=== PATIENT | female | born 1995 | race African-American/Black ===

== ENCOUNTER 2018-04-26 16:36 | Inpatient (IN) | payer OTHER ==
[~2018-04-26] VITALS: Ht 160 cm; Wt 72.6 kg
[2018-04-26 17:22] LABS: MEAN CORPUSCULAR HEMOGLOBIN 24.2 pg (27.0-33.0); MEAN CORPUSCULAR HGB CONC 30.7 g/dl (32.0-36.5); MEAN CORPUSCULAR VOLUME 78.9 fl (80.0-96.0); PLATELET COUNT, AUTOMATED 255 10^3/uL (150-450); WHITE BLOOD COUNT 4.8 10^3/uL (4.0-10.0)
[2018-04-26 17:25] LABS: HEMOGLOBIN 4.6 g/dl (12.0-15.5)
[2018-04-26] MEDS ORDERED: NS 1,000 ML IV ONE (17:30)
[2018-04-26 17:40] LABS: HCG, SERUM QUALITATIVE NEGATIVE (NEGATIVE)
[2018-04-26 17:46] LABS: BLOOD UREA NITROGEN 9 MG/DL (7-18); CALCIUM LEVEL 8.7 MG/DL (8.5-10.1); CARBON DIOXIDE LEVEL 26 MEQ/L (21-32); CHLORIDE LEVEL 108 MEQ/L (98-107); CREATININE FOR GFR 0.74 MG/DL (0.55-1.30); GLOMERULAR FILTRATION RATE > 60.0 (>60); GLUCOSE, FASTING 88 MG/DL (70-100); POTASSIUM SERUM 3.8 MEQ/L (3.5-5.1); SODIUM LEVEL 138 MEQ/L (136-145)
[2018-04-26] MEDS ORDERED: ONDANSETRON 4MG/2ML VIAL (J2405) IV PRN (18:00)
[2018-04-26] MEDS ORDERED: ACETAMINOPHEN 500 MG TAB PO PRN (18:00)
[2018-04-26] MEDS ORDERED: CONJUGATED ESTROGENS 25 MG VIAL (J1410) IV PRN (18:00)
[2018-04-26] MEDS ORDERED: diphenhydrAMINE INJ 50MG/ML VIAL (J1200) IV ONE (18:15)
[2018-04-26] MEDS ORDERED: METOCLOPRAMIDE INJ 10MG/2ML VIAL (J2765) IV ONE (18:15)
--- NOTE | 2018-04-26 18:40 | IPNPDOC ---
Text Note Date of Service The patient was seen on 04/26/18. NOTE ER consult CC: Menorrhagia, dizziness Shelley is a 23 yo G0 not currently using contraception who presented to the ER after being instructed to do so because of heavy vaginal bleeding that has been persistent for greater than a week that has resulted in her feeling weak and dizzy. She reports she has had persistent bleeding for greater than a week that will just not stop. She had a pelvic US today at [place] which revealed a mildly thickened endometrial stripe. She has never experienced something like this before. She had a pelvic US today at [place] which revealed a mildly thickened endometrial stripe. Right now she reports feeling dizzy and light headed. She also feels weak. She denies any SOB or chest pain. She denies bleeding from any other location. ER course - Lab work, IV access OBHX: G0 GYNHX: No STD or abnormal pap history. Menstrual cycles erratic at times. PMHX: Denies PSHX: Denies All: None Meds: None Social: Denies tobacco use, rec drug use, or etoh use FamHx: Denies any family history of VTE or cardiac problems Exam (Chaperoned by ER nurse): Vitals - BP 130/60, HR 120s, 98% O2 on RA, afebrile General - AAOX3, laying in bed, NAD. Pale appearing CV - Tachycardic rate, regular rhythm Abdomen - Soft, nondistended. No tenderness to palpation Pelvic - Normal external female genitalia. Speculum placed into the vagina and the cervix was visualized. Scant oozing blood noted from the cervix. No lesions or masses. Speculum removed. Extremities - No edema Labs: H/H - 4.6/15.0 Rads: TVUS at [place] revealed numerous follicular cysts on both ovaries. Mildly thickened EMS at 1.4cm. No gross lesions or abnormalities. A/P: 23 yo G0 with acute, persistent menorrhagia resulting symptomatic, severe anemia. -Bleeding minimal at this time but persistent. She is AAOX3, but her low H/H and elevated pulse are concerning. Will admit to the floor for transfusion of 4U PRBCs and administration of IV estrogen. She has been typed and crossed. She has no contraindications for estrogen therapy (i.e., doesn't smoke, no personal or family history of VTE, breast Ca, or uterine Ca). -SCDs -Zofran IV for nausea -CBC following transfusion completion -Q4H vital signs -Close monitoring with vaginal pad counts. May need to consider D+C if bleeding is refractory to medical therapy. - All patient questions answered. Rosalio Parks DO VS,Juan J, I+O VS, Juan J, I+O Laboratory Tests 04/26/18 16:59 Red Blood Count 1.90 L, Mean Corpuscular Volume 78.9 L, Mean Corpuscular Hemoglobin 24.2 L, Mean Corpuscular Hemoglobin Concent 30.7 L, Red Cell Distribution Width 16.0 H, Calcium Level 8.7 Vital Signs Date Time Temp Pulse Resp B/P (MAP) Pulse Ox O2 Delivery O2 Flow Rate FiO2 04/26/18 17:00 04/26/18 16:37 98.9 124 16 98 Room Air ROSALIO PARKS DO Apr 26, 2018 18:40
[2018-04-26 21:00] VITALS: BP 118/56
[2018-04-26] MEDS: DOCUSATE SODIUM 100 MG CAP PO SCH (23:19)
[2018-04-26] MEDS: CONJUGATED ESTROGENS 25 MG VIAL (J1410) IV SCH (23:20)
[2018-04-27] VITALS: BP 119/59
[2018-04-27 04:00] VITALS: BP 118/65
[2018-04-27] MEDS: CONJUGATED ESTROGENS 25 MG VIAL (J1410) IV SCH ×2 (06:59→14:44)
[2018-04-27 08:30] VITALS: BP 135/67
[2018-04-27 08:47] LABS: BASO % 0.5 % (0.0-1.0); EOS % 0.5 % (0.0-3.0); HEMATOCRIT 29.3 % (36.0-47.0); LYMPH # 1.9 10^3/uL (1.5-6.5); LYMPH % 29.2 % (24.0-44.0); MEAN CORPUSCULAR HEMOGLOBIN 27.5 pg (27.0-33.0); MEAN CORPUSCULAR HGB CONC 32.8 g/dl (32.0-36.5); MONO # 0.6 10^3/uL (0.0-0.8); MONO % 8.7 % (0.0-5.0); NEUTROPHILS % 60.9 % (36.0-66.0); PLATELET COUNT, AUTOMATED 197 10^3/uL (150-450); RED BLOOD COUNT 3.49 10^6/uL (4.00-5.40); WHITE BLOOD COUNT 6.5 10^3/uL (4.0-10.0)
--- NOTE | 2018-04-27 08:48 | IPNPDOC ---
Text Note Date of Service The patient was seen on 04/27/18. NOTE Patient seen this AM. Ms. Lopez reports feeling significantly improved this morning. She just recently completed her last unit of blood. She has had very minimal vaginal s potting since admission and starting the IV estrogen. She is ambulating, voiding, and tolerating a regular diet. Vitals - VSS, afebrile, normotensive, non tachycardic General - AAOX3, sitting up in bed, NAD CV - RRR Abdomen - Soft, nondistended, no tenderness to palpation Extremities - No edema Labs: pending post op CBC Ms. Lopez is doing ell. Bleeding has halted after IV estrogen. She feels much improved after her transfusion. If CBC looks good today likely discharge home today. Would recommend starting OCPs. all patient questions answered. DO Charly VS,Juan J, I+O VS, Juan J, I+O Laboratory Tests 04/26/18 16:59 Red Blood Count 1.90 L, Mean Corpuscular Volume 78.9 L, Mean Corpuscular Hemoglobin 24.2 L, Mean Corpuscular Hemoglobin Concent 30.7 L, Red Cell Distribution Width 16.0 H, Calcium Level 8.7 Vital Signs Date Time Temp Pulse Resp B/P (MAP) Pulse Ox O2 Delivery O2 Flow Rate FiO2 04/27/18 04:00 98.0 88 18 118/65 (82) 100 2.0 04/26/18 16:37 Room Air I&O- Last 24 Hours up to 6 AM 04/27/18 06:00 Intake Total 2995 ml Output Total 300 ml Balance 2695 ml ROSALIO CLINOTN DO Apr 27, 2018 08:48
[2018-04-27 09:25] LABS: HEMOGLOBIN 9.6 g/dl (12.0-15.5)
[2018-04-27] MEDS: DOCUSATE SODIUM 100 MG CAP PO SCH (09:41)
[2018-04-27 12:00] VITALS: BP 121/64
--- NOTE | 2018-04-29 16:24 | DSES ---
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 At that time her hemoglobin and hematocrit were 8.0 and 26.0 and it was recommended to the primary care to get an ultrasound and followup with an appointment with [facility]. At the time the primary care saw the patient she was asymptomatic outside of the heavy bleeding. She had no dizziness or weakness and no evidence of hypotension. She did have an ultrasound at [place] on Sunday which appeared to be normal but she was bleeding profusely and persistently and because [place] was closed, she was instructed to come to the emergency room for evaluation. When she arrived she was feeling weak and dizzy and she had had persistent bleeding and she had a repeat of her CBC and her admitting hemoglobin was 4.6, hematocrit was 15.0, platelets were 160. Her blood group is O+. On admission she had her IV access, her lab work. She is a 0. No abnormal Pap history, menstrual cycle has always been erratic. No past medical or surgical. She is on no medications. She is active duty. Denies any tobacco or alcohol. No recreational drugs. Surprisingly her vital signs were stable. Her blood pressure 130/60, heart rate 120, oxygen saturations were normal. She was admitted with a history of persistent menorrhagia being symptomatic and severe anemia and she had been counseled regarding blood transfusion and the need for IV Premarin in order to initially precipitate and stop this bleeding. She received 4 units of packed cells and on reevaluating her hemoglobin/hematocrit several hours after her last blood transfusion, her hemoglobin was 9.6, hematocrit 29.3 and platelets were was 197. She appeared not to be dizzy with no weakness, felt much better having had 4 units of packed cells, with her monitored dose of Premarin IV she stopped bleeding and had just basically a trickle and we discussed with her a discharge plan which was she would have quarters until 05/01/2018. She has an appointment to followup at the clinic at 11:05 a.m. On discharge, her blood pressure is 121/64, respirations are 16, pulse was 94 and temperature was 98.1. She was normocephalic, atraumatic. Neck full range of motions. Pupils equal and reactive to light. Distal pulses were symmetric. No evidence of DVT, PE or superficial phlebitis. Chest is clear bilaterally to bases. No wheezes or rhonchi. Abdomen soft. Uterus was two below. Four quadrant bowel sounds are noted and minimal trickling from the vagina. The rest of the examination is unremarkable. No rashes, lesions or pruritus. No arthralgia or myalgia. No complaint of joint pain. No cough, wheezes, shortness of breath, dyspnea on exertion. She has no nausea, vomiting, diarrhea or constipation. In summary we have a lady who had severe anemia from menorrhagia controlled by IV Premarin, anemia was improved by 4 units of packed cells. Her chemistry indicated that her anion gap was 4, GFR was greater than 60, her creatinine was 0.74. The patient was discharged with papers.
== END 2018-04-27 15:45 | disposition home or self-care (01) | DRG 812 ==
LOC: M ED 16:36 → M ED INP 17:55 → M PED 20:55
PROVIDERS: ADMIT Obstetrics & Gynecology; ATTEND Obstetrics & Gynecology
PROC: 30233N1 Transfusion of Nonautologous Red Blood Cells into Peripheral Vein, Percutaneous Approach (ICD-10-PCS; principal; 2018-04-26)
DX: D62 Acute posthemorrhagic anemia (principal); N92.0 Excessive and frequent menstruation with regular cycle

== ENCOUNTER 2019-08-29 02:21 | Emergency (ER) | payer OTHER ==
[~2019-08-29] VITALS: Ht 160 cm; Wt 63.6 kg
[2019-08-29 02:22] VITALS: BP 135/99
== END 2019-08-29 03:57 | disposition home or self-care (01) ==
LOC: M ED 02:21
DX: F43.20 Adjustment disorder, unspecified (principal); Z63.0 Problems in relationship with spouse or partner; Z81.8 Family history of other mental and behavioral disorders

== ENCOUNTER → 2021-10-16 | Outpatient (CLI) | payer OTHER ==
[~2021-10-16] VITALS: Ht 160 cm; Wt 98.4 kg
[~2021-10-16] MED LIST: FERR325T3 PO; PRENTAB9 PO
[2021-10-16 05:11] VITALS: BP 138/85
== END ==
LOC: M LDO 04:02
PROVIDERS: ATTEND Obstetrics & Gynecology
DX: O47.1 False labor at or after 37 completed weeks of gestation (principal); Z3A.39 39 weeks gestation of pregnancy
CPT/HCPCS: 59025; G0463

== ENCOUNTER 2021-10-17 11:04 | Inpatient (IN) | payer OTHER ==
[2021-10-17] VITALS (42 sets, daily range): BP systolic 116–153; BP diastolic 59–100
[~2021-10-17] VITALS: Ht 160 cm; Wt 97.6 kg
[2021-10-17 12:12] LABS: HEMATOCRIT 31.3 % (36.0-47.0); HEMOGLOBIN 9.7 g/dl (12.0-15.5); MEAN CORPUSCULAR HEMOGLOBIN 22.6 pg (27.0-33.0); PLATELET COUNT, AUTOMATED 134 10^3/uL (150-450); RED BLOOD COUNT 4.29 10^6/uL (4.00-5.40); WHITE BLOOD COUNT 9.9 10^3/uL (4.0-10.0)
[2021-10-17] MEDS ORDERED: PRENTAB9 PO (12:27)
[2021-10-17] MEDS ORDERED: FERR325T3 PO (12:27)
[2021-10-17] MEDS ORDERED: LR 1,000 ML IV ONE (12:45)
[2021-10-17] MEDS ORDERED: METHYLERGONOVINE MALEATE 0.2 MG/ML VIAL (J2210) IM PRN (13:15)
[2021-10-17] MEDS ORDERED: TRANEXAMIC ACID INJection 1,000 MG in NS 100 ML IV PRN (13:15)
[2021-10-17] MEDS ORDERED: OXYTOCIN DRIP 30 UNITS in IV 1 EA IV PRN ×4 (13:15)
[2021-10-17] MEDS ORDERED: LIDOCAINE 1% MDV 20ML VIAL INFIL PRN (13:15)
[2021-10-17] MEDS ORDERED: diphenhydrAMINE 50MG/ML VIAL (J1200) IV PRN (14:30)
[2021-10-17] MEDS ORDERED: ePHEDrine SULFATE 25 MG/5 ML(5MG/ML) SYRINGE IVP PRN (14:30)
[2021-10-17] MEDS ORDERED: LR 500 ML IV PRN (14:30)
[2021-10-17] MEDS ORDERED: EPIDURAL/PCA KEYS XX PRN (14:30)
[2021-10-17] MEDS ORDERED: NALOXONE INJ 0.4MG/1ML VIAL (J2310 PER 1MG) IV PRN (14:30)
[2021-10-17] MEDS ORDERED: ONDANSETRON 4MG 2ML VIAL IV PRN (14:30)
[2021-10-17] MEDS ORDERED: FENTANYL 2MCG/ML ROPIVACAINE 0.2% IN 0.9% NACL 100ML IVBAG As Ordered ONE (14:32)
[2021-10-17] MEDS: FENTANYL/ROPIVACAINE/NACL BAG 100 ML EPIDURAL SCH ×2 (15:21→22:48)
[2021-10-17] MEDS: LR 1,000 ML IV SCH ×3 (15:58→21:30)
[2021-10-17] MEDS ORDERED: OXYTOCIN DRIP 30 UNITS in IV 1 EA IV SCH (16:50)
[2021-10-17] MEDS ORDERED: GENTAMICIN 400 MG in D5W 50 ML IV ONE (21:15)
[2021-10-17] MEDS: AMPICILLIN SOD 2 GM in D5W MINI-BAG PLUS 100 ML IV SCH (21:30)
[2021-10-17] MEDS ORDERED: ACETAMINOPHEN 325 MG TAB PO ONE (22:10)
[2021-10-18] VITALS (24 sets, daily range): BP systolic 111–184; BP diastolic 56–94
[2021-10-18] MEDS: AMPICILLIN SOD 2 GM in D5W MINI-BAG PLUS 100 ML IV SCH ×2 (04:23→09:05)
[2021-10-18] MEDS: LR 1,000 ML IV SCH ×4 (04:23→21:02)
[2021-10-18] MEDS ORDERED: AZITHROMYCIN INJ 500 MG, VIAL MATE ADAPTER 1 EACH in NS 250 ML IV ONE (06:05)
[2021-10-18] MEDS ORDERED: BICITRA 30ML SOLN UDC PO ONE (06:05)
[2021-10-18] MEDS ORDERED: BICITRA 30ML SOLN UDC As Ordered ONE (06:08)
[2021-10-18] MEDS ORDERED: AZITHROMYCIN INJ 500MG VIAL As Ordered ONE (06:11)
[2021-10-18] MEDS ORDERED: LIDOCAINE 2% W/EPINEPHRINE 20ML VIAL **PRES FREE As Ordered ONE (06:31)
[2021-10-18] MEDS ORDERED: MORPHINE PRES-FREE INJ 10 MG/10 ML VIAL As Ordered ONE (06:31)
[2021-10-18] MEDS ORDERED: ONDANSETRON 4MG 2ML VIAL As Ordered ONE (06:31)
[2021-10-18] MEDS ORDERED: OXYTOCIN 30 UNITS IN 0.9% NaCl 500ML IV BAG (J2590) As Ordered ONE ×2 (06:33→08:17)
[2021-10-18] MEDS ORDERED: ACETAMINOPHEN 1000MG 100ML IV BTL (OFIRMEV) (J0131 PER 10MG) As Ordered ONE (06:33)
[2021-10-18] MEDS ORDERED: dexameTHASONE 4 MG/ML 1ML VIAL (J1100 PER 1MG) As Ordered ONE (07:19)
[2021-10-18] MEDS ORDERED: KETOROLAC 60MG 2ML VIAL As Ordered ONE (07:21)
[2021-10-18 07:22] LABS: CORD GAS ABE A -6.8; CORD GAS HCO3 A 22.2 MEQ/L; CORD GAS PCO2 A 56.8 mmHg; CORD GAS PH A 7.209 UNITS; CORD GAS PO2 A 15.9 mmHg; CORD GAS SBC A 17.2 MEQ/L; CORD GAS TCO2 A 23.9 MEQ/L
[2021-10-18 07:25] LABS: CORD GAS HCO3 V 20.3 MEQ/L; CORD GAS O2 SAT V 50.2 %; CORD GAS PCO2 V 42.4 mmHg; CORD GAS PH V 7.297 UNITS; CORD GAS PO2 V 21.3 mmHg; CORD GAS SBC V 18.4 MEQ/L; CORD GAS TCO2 V 21.6 MEQ/L
[2021-10-18] MEDS ORDERED: BUPIVACAINE HCL 0.25% 30ML VIAL As Ordered ONE (07:41)
[2021-10-18] MEDS ORDERED: BUPIVACAINE HCL 0.25% 10ML VIAL SC ONE (07:50)
[2021-10-18] MEDS ORDERED: ONDANSETRON 4MG 2ML VIAL IV PRN ×3 (08:05→08:15)
[2021-10-18] MEDS ORDERED: oxyCODONE 5MG TAB PO PRN ×3 (08:05→08:15)
[2021-10-18] MEDS ORDERED: SIMETHICONE 80MG CHEW TAB PO PRN (08:05)
[2021-10-18] MEDS ORDERED: RHOGAM 300 MCG (1500 IU) INJ (J2790) IM SCH (08:05)
[2021-10-18] MEDS ORDERED: METHYLERGONOVINE MALEATE 0.2 MG/ML VIAL (J2210) IM PRN (08:05)
[2021-10-18] MEDS ORDERED: PROMETHAZINE 25 MG TAB PO PRN (08:05)
[2021-10-18] MEDS ORDERED: NALOXONE INJ 0.4MG/1ML VIAL (J2310 PER 1MG) IV PRN ×2 (08:15)
[2021-10-18] MEDS ORDERED: fentaNYL 100 MCG/2 ML INJECTION IV PRN (08:15)
[2021-10-18] MEDS ORDERED: **NOTE PATIENT COMMENT** MISC XX SCH (08:15)
[2021-10-18] MEDS ORDERED: diphenhydrAMINE 50MG/ML VIAL (J1200) IV PRN (08:15)
[2021-10-18] MEDS ORDERED: metroNIDAZOLE (FLAGYL) 500MG TABLET PO ONE (08:15)
[2021-10-18] MEDS: SLF 3 ML SYR IV SCH ×2 (08:39→16:15)
[2021-10-18] MEDS: PRENATAL VITAMINS CHEWABLE TABLET PO SCH (09:00)
[2021-10-18] MEDS: DOCUSATE SODIUM 100MG CAPSULE PO SCH ×2 (09:00→21:02)
[2021-10-18] MEDS ORDERED: oxyCODONE 5MG TAB As Ordered ONE (09:02)
[2021-10-18] MEDS: FENTANYL/ROPIVACAINE/NACL BAG 100 ML EPIDURAL SCH ×2 (10:30→19:25)
[2021-10-18] MEDS: KETOROLAC 30 MG/ML 1ML VIAL IV SCH ×2 (13:22→18:33)
[2021-10-18] MEDS: ACETAMINOPHEN 500 MG TAB PO SCH ×2 (13:27→18:32)
[2021-10-18 14:28] LABS: HEMATOCRIT 31.3 % (36.0-47.0); HEMOGLOBIN 9.8 g/dl (12.0-15.5); MEAN CORPUSCULAR HEMOGLOBIN 23.2 pg (27.0-33.0); MEAN CORPUSCULAR HGB CONC 31.3 g/dl (32.0-36.5); PLATELET COUNT, AUTOMATED 125 10^3/uL (150-450); RED BLOOD COUNT 4.23 10^6/uL (4.00-5.40); WHITE BLOOD COUNT 22.5 10^3/uL (4.0-10.0)
[2021-10-18 14:59] LABS: ALT/SGPT 16 U/L (12-78); BILIRUBIN,TOTAL 0.6 MG/DL (0.2-1.0); CREATININE FOR GFR 0.76 MG/DL (0.55-1.30); GLOMERULAR FILTRATION RATE > 60.0 (>60); LDH LACTATE DEHYDROGENASE 266 U/L (84-246); URIC ACID 4.6 MG/DL (2.6-6.0)
[2021-10-18 15:04] LABS: CREATININE,RANDOM URINE < 13.0 MG/DL; TOTAL PROTEIN,RANDOM URINE 15.4 MG/DL (0.0-12.0)
[2021-10-19] MEDS: ACETAMINOPHEN 500 MG TAB PO SCH ×4 (01:11→18:35)
[2021-10-19] MEDS: KETOROLAC 30 MG/ML 1ML VIAL IV SCH (01:11)
[2021-10-19] MEDS: SLF 3 ML SYR IV SCH (01:11)
[2021-10-19 02:00] VITALS: BP 137/83
[2021-10-19 06:00] VITALS: BP 139/80
[2021-10-19 08:22] LABS: HEMATOCRIT 28.8 % (36.0-47.0); HEMOGLOBIN 9.1 g/dl (12.0-15.5); MEAN CORPUSCULAR HEMOGLOBIN 23.3 pg (27.0-33.0); MEAN CORPUSCULAR HGB CONC 31.6 g/dl (32.0-36.5); MEAN CORPUSCULAR VOLUME 73.7 fl (80.0-96.0); RED BLOOD COUNT 3.91 10^6/uL (4.00-5.40); WHITE BLOOD COUNT 21.4 10^3/uL (4.0-10.0)
[2021-10-19 08:26] LABS: PLATELET COUNT, AUTOMATED 147 10^3/uL (150-450)
[2021-10-19] MEDS: PRENATAL VITAMINS CHEWABLE TABLET PO SCH (08:48)
[2021-10-19] MEDS: IBUPROFEN 800 MG TAB PO SCH ×2 (08:48→17:14)
[2021-10-19] MEDS: DOCUSATE SODIUM 100MG CAPSULE PO SCH ×2 (08:48→21:40)
[2021-10-19 10:00] VITALS: BP 128/65
[2021-10-19 14:00] VITALS: BP 139/73
[2021-10-19 18:00] VITALS: BP 140/83
[2021-10-19 22:00] VITALS: BP 148/87
[2021-10-20] MEDS: ACETAMINOPHEN 500 MG TAB PO SCH ×2 (01:51→06:54)
[2021-10-20] MEDS: IBUPROFEN 800 MG TAB PO SCH ×2 (01:51→09:07)
[2021-10-20 02:00] VITALS: BP 148/80
[2021-10-20 06:00] VITALS: BP 142/67
[2021-10-20] MEDS ORDERED: OXYC-517 PO (06:43)
[2021-10-20] MEDS ORDERED: IBUP80TA PO (06:43)
[2021-10-20] MEDS ORDERED: COLA100C5 PO (06:43)
[2021-10-20] MEDS ORDERED: ACET-683 PO (06:43)
[2021-10-20] MEDS ORDERED: DIMETHICONE 2% OINTMENT(VANICREAM) 70GM TUBE TOP SCH (09:00)
[2021-10-20] MEDS ORDERED: MEASLES,MUMPS,RUBELLA VACCINE INJ (MMR-II) (90707) SC.IMMUN ONE (09:00)
[2021-10-20] MEDS: DOCUSATE SODIUM 100MG CAPSULE PO SCH (09:07)
[2021-10-20] MEDS: PRENATAL VITAMINS CHEWABLE TABLET PO SCH (09:07)
== END 2021-10-20 11:15 | disposition home or self-care (01) | DRG 771 ==
LOC: M LDO 11:04 → M LDI 11:41 → M LDPACU 10-18 08:00 → M OBS 10-18 10:06
PROVIDERS: ADMIT Obstetrics & Gynecology; ATTEND Obstetrics & Gynecology
PROC: 10D00Z1 Extraction of Products of Conception, Low, Open Approach (ICD-10-PCS; principal; 2021-10-18 06:45)
DX: O62.0 Primary inadequate contractions (principal); O41.1230 Chorioamnionitis, third trimester, not applicable or unspecified; Z3A.39 39 weeks gestation of pregnancy; O26.03 Excessive weight gain in pregnancy, third trimester; Z37.0 Single live birth

== ENCOUNTER 2023-03-05 05:48 | Inpatient (IN) | payer OTHER ==
[~2023-03-05] VITALS: Ht 160 cm; Wt 98.5 kg
[2023-03-05] VITALS (7 sets, daily range): BP systolic 110–133; BP diastolic 52–72; O2SAT 96–99
[~2023-03-05 05:48] MED LIST changes: +ACET-683 PO; +COLA100C5 PO; +IBUP80TA PO; +OXYC-517 PO; +VITA100062 PO
[2023-03-05] MEDS ORDERED: HOME MED LIST COMPLETE! XX SCH (06:05)
[2023-03-05] MEDS ORDERED: LACTATED RINGER'S 1000 ML IV STA (06:22)
[2023-03-05 06:52] LABS: HEMATOCRIT 32.7 % (36.0-47.0); HEMOGLOBIN 10.1 g/dl (12.0-15.5); MEAN CORPUSCULAR HEMOGLOBIN 23.1 pg (27.0-33.0); MEAN CORPUSCULAR HGB CONC 30.9 g/dl (32.0-36.5); MEAN CORPUSCULAR VOLUME 74.7 fl (80.0-96.0); PLATELET COUNT, AUTOMATED 142 10^3/uL (150-450); RED BLOOD COUNT 4.38 10^6/uL (4.00-5.40); WHITE BLOOD COUNT 10.1 10^3/uL (4.0-10.0)
[2023-03-05] MEDS ORDERED: BICITRA 30ML SOLN UDC PO ONE (07:00)
[2023-03-05] MEDS ORDERED: ceFAZolin SOD 2 GM in IV 1 EA IV ONE (07:00)
[2023-03-05] MEDS: LR 1,000 ML IV SCH ×3 (07:08→12:11)
[2023-03-05] MEDS ORDERED: PHENYLephrine 500MCG 5ML (100MCG/ML) SYRINGE As Ordered ONE (07:57)
[2023-03-05] MEDS ORDERED: ACETAMINOPHEN 1000MG 100ML IV BAG As Ordered ONE (07:57)
[2023-03-05] MEDS ORDERED: MORPHINE PRES-FREE INJ 10 MG/10 ML VIAL As Ordered ONE (07:57)
[2023-03-05] MEDS ORDERED: KETOROLAC 60MG 2ML VIAL As Ordered ONE (07:57)
[2023-03-05] MEDS ORDERED: OXYTOCIN 30UNITS IN 0.9% NaCl 500ML IV BAG As Ordered ONE (07:57)
[2023-03-05] MEDS ORDERED: ePHEDrine SULFATE 25 MG/5 ML(5MG/ML) SYRINGE As Ordered ONE (07:57)
[2023-03-05] MEDS ORDERED: ONDANSETRON 4MG 2ML VIAL As Ordered ONE (07:57)
[2023-03-05] MEDS ORDERED: fentaNYL 100 MCG/2 ML INJECTION As Ordered ONE (08:21)
[2023-03-05] MEDS ORDERED: MOM 30ML SUSPENSION UDC PO PRN (08:50)
[2023-03-05] MEDS ORDERED: RHOGAM 300MCG (1500IU) INJ IM SCH (08:50)
[2023-03-05] MEDS ORDERED: ONDANSETRON 4MG 2ML VIAL IV PRN ×2 (08:50→08:55)
[2023-03-05] MEDS ORDERED: METHYLERGONOVINE MALEATE 0.2 MG TAB PO PRN (08:50)
[2023-03-05] MEDS ORDERED: OXYTOCIN DRIP 30 UNITS in IV 1 EA IV SCH (08:50)
[2023-03-05] MEDS ORDERED: oxyCODONE 5MG TAB PO PRN ×3 (08:50→08:55)
[2023-03-05] MEDS ORDERED: ACETAMINOPHEN 500 MG TAB PO PRN (08:50)
[2023-03-05] MEDS ORDERED: SIMETHICONE 80MG CHEW TAB PO PRN (08:50)
[2023-03-05] MEDS ORDERED: **NOTE PATIENT COMMENT** MISC XX SCH (08:55)
[2023-03-05] MEDS ORDERED: fentaNYL 100 MCG/2 ML INJECTION IV PRN (08:55)
[2023-03-05] MEDS ORDERED: HYDROMORPHONE HCL 0.5 MG/ 0.5 ML SYRINGE IV PRN (08:55)
[2023-03-05] MEDS: SLF 3 ML SYR IV SCH ×2 (08:55→16:55)
[2023-03-05] MEDS ORDERED: NALOXONE INJ 0.4MG/1ML VIAL IV PRN ×2 (08:55)
[2023-03-05] MEDS ORDERED: LR 1,000 ML IV SCH (08:55)
[2023-03-05] MEDS ORDERED: MEPERIDINE 25 MG/ML 1ML VIAL IV PRN (08:55)
[2023-03-05] MEDS ORDERED: diphenhydrAMINE 50MG/ML VIAL IV PRN (08:55)
[2023-03-05] MEDS: METOCLOPRAMIDE INJ 10MG/2ML VIAL IV PRN ×2 (12:07→20:05)
[2023-03-05] MEDS: KETOROLAC 30 MG/ML 1ML VIAL IV SCH ×2 (15:47→22:25)
[2023-03-05] MEDS: DOCUSATE SODIUM 100MG CAPSULE PO SCH (19:48)
[2023-03-06] VITALS (7 sets, daily range): BP systolic 123–133; BP diastolic 62–73; TEMP 98.7; O2SAT 97–100
[2023-03-06] MEDS: SLF 3 ML SYR IV SCH (00:55)
[2023-03-06] MEDS: LR 1,000 ML IV SCH (01:40)
[2023-03-06] MEDS: KETOROLAC 30 MG/ML 1ML VIAL IV SCH (03:14)
[2023-03-06 07:03] LABS: HEMATOCRIT 30.5 % (36.0-47.0); HEMOGLOBIN 9.2 g/dl (12.0-15.5); MEAN CORPUSCULAR HEMOGLOBIN 22.4 pg (27.0-33.0); MEAN CORPUSCULAR HGB CONC 30.2 g/dl (32.0-36.5); MEAN CORPUSCULAR VOLUME 74.4 fl (80.0-96.0); PLATELET COUNT, AUTOMATED 126 10^3/uL (150-450); WHITE BLOOD COUNT 9.1 10^3/uL (4.0-10.0)
[2023-03-06] MEDS: PRENATAL VITAMINS CHEWABLE TABLET PO SCH (10:51)
[2023-03-06] MEDS: DOCUSATE SODIUM 100MG CAPSULE PO SCH ×2 (10:51→20:22)
[2023-03-06] MEDS: IBUPROFEN 800 MG TAB PO SCH ×2 (10:52→18:34)
[2023-03-07] MEDS: IBUPROFEN 800 MG TAB PO SCH ×2 (02:34→11:12)
[2023-03-07 06:00] VITALS: BP 120/64
[2023-03-07] MEDS: DOCUSATE SODIUM 100MG CAPSULE PO SCH (08:02)
[2023-03-07] MEDS: PRENATAL VITAMINS CHEWABLE TABLET PO SCH (08:02)
[2023-03-07] MEDS ORDERED: MEASLES,MUMPS,RUBELLA VACCINE INJ (MMR-II) SC.IMMUN ONE (09:00)
[2023-03-07 10:00] VITALS: BP 118/74; O2SAT 100
== END 2023-03-07 14:25 | disposition home or self-care (01) | DRG 773 ==
LOC: M LDI 05:48 → M OBS 10:12
PROVIDERS: ADMIT Obstetrics & Gynecology; ATTEND Obstetrics & Gynecology
PROC: 10D00Z1 Extraction of Products of Conception, Low, Open Approach (ICD-10-PCS; principal; 2023-03-05 07:30)
DX: O34.211 Maternal care for low transverse scar from previous cesarean delivery (principal); Z37.0 Single live birth; Z3A.39 39 weeks gestation of pregnancy